=== PATIENT | female | born 1935 | race Caucasian/White ===

== ENCOUNTER 2022-07-22 13:55 | Inpatient (IN) | payer MEDICARE, OTHER ==
[~2022-07-22] VITALS: Ht 172.7 cm; Wt 77.1 kg
[2022-07-22] MEDS ORDERED: HCTZ (14:27)
[2022-07-22] MEDS ORDERED: METFORMIN (14:27)
[2022-07-22] MEDS ORDERED: ARICEPT (14:27)
[2022-07-22] MEDS ORDERED: NAMENDA (14:27)
[2022-07-22] MEDS ORDERED: GABAPENTIN (14:27)
[2022-07-22] MEDS ORDERED: OLME5TAB3 (14:27)
--- NOTE | 2022-07-22 14:27 | NUR ---
PT AND PT's DOUGHTER DOES NOT REMEMBER PT's HOME MEDICATION DOSAGES.
[2022-07-22 15:24] LABS: HEMATOCRIT 34.9 % (31.2-41.9); MEAN CORPUSCULAR HEMOGLOBIN 28.4 uug (24.7-32.8); MEAN CORPUSCULAR VOLUME 85.1 fL (75.5-95.3); PLATELET COUNT (AUTO) 312 K/uL (179-408)
[2022-07-22 15:33] LABS: CARBON DIOXIDE 25 mmol/L (21-32); CHLORIDE 107 mmol/L (98-107); CREATININE 1.5 mg/dL (0.6-1.3); GLUCOSE 106 mg/dL (74-106); UREA NITROGEN, BLOOD 23 mg/dL (7-18)
[2022-07-22] MEDS ORDERED: DONE10TA11 PO (15:37)
[2022-07-22] MEDS ORDERED: ASPI81TA31 PO (15:37)
[2022-07-22] MEDS ORDERED: OLME40TA12 PO (15:37)
[2022-07-22] MEDS ORDERED: METF-440 PO (15:37)
[2022-07-22 15:39] LABS: ALANINE AMINOTRANSFERASE 18 U/L (14-59); ALKALINE PHOSPHATASE 79 U/L (50-136); ASPARTATE AMINOTRANSFERASE 7 U/L (15-37); BILIRUBIN,DIRECT 0.1 mg/dL (0.0-0.2); BILIRUBIN,TOTAL 0.3 mg/dL (0.2-1.0); TOTAL PROTEIN, SERUM 6.8 g/dL (6.4-8.2)
[2022-07-22] MEDS ORDERED: HYDR25TA4 PO (15:42)
[2022-07-22] MEDS ORDERED: IV NORMAL SALINE 1000 ML BAG IV ONE (16:00)
[2022-07-22] MEDS ORDERED: QUET100T PO (18:44)
[2022-07-22] MEDS ORDERED: DOCU50CA3 PO (18:45)
--- NOTE | 2022-07-22 22:39 | NUR ---
Notify Israel Alvarez regarding patient daughter request for Seroquel 100mg po q hs for agitation, Torey Alvarez ordered Seroquel as requested.
[2022-07-22 22:50] VITALS: BP 185/88
[2022-07-22] MEDS: QUETIAPINE FUMARATE 100 MG TABLET PO SCH (22:50)
[2022-07-22] MEDS ORDERED: hydrALAZINE HCL 25 MG TABLET PO PRN (23:45)
[2022-07-23] MEDS ORDERED: MAGNESIUM HYDROXIDE 30 ML LIQUID UDC PO PRN
[2022-07-23] MEDS ORDERED: ACETAMINOPHEN 325 MG TABLET PO PRN
[2022-07-23] MEDS ORDERED: REMEDY ESSENTIAL ZINC PASTE 113 GM TP PRN
[2022-07-23] MEDS ORDERED: ONDANSETRON 4 MG/2 ML VIAL IV PRN
[2022-07-23 00:18] VITALS: BP 140/67
[2022-07-23] MEDS: IV LACTATED RINGERS SOLUTION 1,000 ML IV PRN ×2 (02:20→16:04)
--- NOTE | 2022-07-23 03:43 | NUR ---
Pt asleep IVf infusing site satisfactory. No loose stools noted.
[2022-07-23 04:55] VITALS: BP 148/71
[2022-07-23 07:18] LABS: HEMATOCRIT 31.7 % (31.2-41.9); MEAN CORPUSCULAR HEMOGLOBIN 28.5 uug (24.7-32.8); MEAN CORPUSCULAR VOLUME 83.8 fL (75.5-95.3); PLATELET COUNT (AUTO) 297 K/uL (179-408)
[2022-07-23 07:31] LABS: CREATININE 1.3 mg/dL (0.6-1.3); MAGNESIUM 2.1 mg/dL (1.8-2.4); PHOSPHOROUS 2.6 mg/dL (2.5-4.9)
--- NOTE | 2022-07-23 08:00 | NUR ---
IN BED REMAINS CONFUSED, SPEAKS CONGOLESE BUT ABLE TO FOLLOW SIMPLE COMMANDS.REQUIRES TOTAL CARE IN ALL AREAS OF ADLS. PATIENT HEART MONITOR DISCONTINUED. ADMIT ORDERS WAS TELE
[2022-07-23] MEDS: DONEPEZIL 10 MG TABLET PO SCH (08:33)
[2022-07-23] MEDS: ASPIRIN 81 MG TAB.CHEW PO SCH (08:33)
[2022-07-23] MEDS: GABAPENTIN 100 MG CAPSULE PO SCH ×3 (08:34→14:18)
[2022-07-23] MEDS: HYDROCHLOROTHIAZIDE 25 MG TABLET PO SCH (08:34)
[2022-07-23] MEDS: LOSARTAN POTASSIUM 50 MG TABLET PO SCH (08:34)
[2022-07-23] MEDS ORDERED: METFORMIN HCL 500 MG TABLET PO SCH (09:00)
[2022-07-23 10:56] VITALS: BP 160/73
--- NOTE | 2022-07-23 12:00 | NUR ---
NO ACUTE CHANGE FROM MORNING ASSESSMENT, SEEN BY PHYSICAL THERAPIST FOR EXERCISE SEE NOTES
[2022-07-23] MEDS ORDERED: MEMA10TA PO (12:48)
[2022-07-23] MEDS ORDERED: BISACODYL 10 MG SUPP.RECT RC PRN (14:15)
[2022-07-23] MEDS: DOCUSATE SODIUM 100 MG CAPSULE PO SCH ×2 (14:19→22:37)
[2022-07-23 15:05] VITALS: BP 146/67
[2022-07-23] MEDS ORDERED: MIRALAX 17 GM POWD.PACK PO PRN (15:45)
--- NOTE | 2022-07-23 16:14 | NUR ---
SEEN BY DR ROLLINS FOR FOLLOW-UP, MADE AWARE OF NO BM X 2 DAYS WITH ORDERS
[2022-07-23] MEDS: BLOOD SUGAR DIAGNOSTIC 1 EACH STRIP VI SCH ×2 (17:08→21:00)
--- NOTE | 2022-07-23 18:05 | NUR ---
PATIENT PULLED OUT OWN IV, TRIED TO RESTART MULTIPLE TIMES BUT VERY POOR VEIN. DR ROLLINS NOTIFIED AWAITING CALL BACK
[2022-07-23] MEDS: QUETIAPINE FUMARATE 100 MG TABLET PO SCH (19:58)
[2022-07-23 20:00] VITALS: BP 155/79
--- NOTE | 2022-07-23 20:23 | NUR ---
Pt rec'd in bed no distress noted. Daughter at bedside Stated that patient will be disscarged home tomorrow. Not found in note PIV out call placed to MD by previous shift Nurse pending response.
[2022-07-23] MEDS ORDERED: MEMANTINE HCL 5 MG TABLET PO SCH (21:00)
[2022-07-23] MEDS ORDERED: QUETIAPINE FUMARATE 100 MG TABLET PO SCH (21:00)
[2022-07-24 04:00] VITALS: BP 157/79
[2022-07-24] MEDS: BLOOD SUGAR DIAGNOSTIC 1 EACH STRIP VI SCH ×3 (06:43→16:30)
[2022-07-24 06:49] LABS: HEMATOCRIT 33.5 % (31.2-41.9); MEAN CORPUSCULAR HEMOGLOBIN 28.5 uug (24.7-32.8); MEAN CORPUSCULAR VOLUME 84.3 fL (75.5-95.3); PLATELET COUNT (AUTO) 326 K/uL (179-408)
[2022-07-24 06:57] LABS: CREATININE 1.2 mg/dL (0.6-1.3); POTASSIUM 3.8 mmol/L (3.5-5.1)
--- NOTE | 2022-07-24 07:28 | NUR ---
Attempted to insert iv to administer fluids no success. IV Nurse on floor to insert Midline. Po fluids given
--- NOTE | 2022-07-24 08:00 | NUR ---
RECEIVED PATIENT IN BED ASLEEP EASILY AROUSABLE NON VERBAL OBEYS COMMAND AND COOPERATIVE ALL NEEDS ANTICIPATED AND SATISFIED.MAX ASSIST FOR ALL ADL REPOSITIONED FOR COMFORT CALL LIGHTS AND PERSONAL BELONGINGS ARE WITHIN EASY REACH MADE COMFORTABLE AND WILL CONTINUE TO OBSERVE.
[2022-07-24] MEDS: DOCUSATE SODIUM 100 MG CAPSULE PO SCH (08:56)
[2022-07-24] MEDS: DONEPEZIL 10 MG TABLET PO SCH (08:56)
[2022-07-24] MEDS: GABAPENTIN 100 MG CAPSULE PO SCH ×3 (08:56→17:39)
[2022-07-24] MEDS: ASPIRIN 81 MG TAB.CHEW PO SCH (08:56)
[2022-07-24] MEDS: HYDROCHLOROTHIAZIDE 25 MG TABLET PO SCH (08:57)
[2022-07-24] MEDS: LOSARTAN POTASSIUM 50 MG TABLET PO SCH (08:57)
--- NOTE | 2022-07-24 09:00 | NUR ---
PATIENT HAS NO IV SITE SHE IS A HARD STICK AND PER REPORT PATIENTS DAUGHTER DOES NOT WANT MID LINE INSERTION SO DR KATIE ROLLINS NOTIFIED STATED [place] WILL DECIDE IF PATIENT WILL NEED A LINE IN CASE SHE WILL NOT BE DISCHARGED TODAY.
[2022-07-24 11:26] VITALS: BP 142/58
--- NOTE | 2022-07-24 12:15 | NUR ---
RECEIVED CALL FROM THE LAB WITH POSITIVE BLOOD CULTURES IN BOTH BOTTLES GRAM POSITIVE COCCI IN CLUSTERS CALLED TO DR KATIE ROLLINS WITH NO ORDERS AT THIS TIME
--- NOTE | 2022-07-24 12:30 | NUR ---
NEW ORDERS NOTED FROM DR KATIE ROLLINS PATIENT CATH AND URINE SENT TO THE LAB ORDERED.
[2022-07-24 14:18] LABS: *BILIRUBIN,URIN NEGATIVE (NEGATIVE); *CLARITY,URINE SLIGHTLY CLOUDY (CLEAR); *COLOR,URINE YELLOW (YELLOW); *KETONES,URINE NEGATIVE (NEGATIVE); *UROBILINOGEN,URINE 0.2 E.U./dl (NORMAL); LEUKOCYTE ESTERASE ,URINE 2+ (NEGATIVE); NITRITE, URINE POSITIVE (NEGATIVE); UGLUCOSE NEGATIVE (NEGATIVE)
[2022-07-24 14:20] LABS: *BLOOD, URINE TRACE (NEGATIVE)
[2022-07-24 14:45] LABS: BACTERIA,URINE MANY /HPF (NONE SEEN); RBC,URINE 0-3 /HPF (0-3); SQUAMOUS EPITHELIAL CELL,UR MODERATE /HPF (NONE SEEN); WBC,URINE 50-80 /HPF (0-3)
--- NOTE | 2022-07-24 15:10 | NUR ---
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
--- NOTE | 2022-07-24 15:15 | NUR ---
PATIENT SEEN BY DR KATIE ROLLINS WITH ORDER TO DISCHARGE PATIENT HOME STATED WILL ORDER ORAL ANTIBIOTICS FOR HER URINARY TRACT INFECTION PEDAL ASSEMBLER AT THE BEDSIDE NAD PATIENTS DAUGHTER AWARE.
[2022-07-24] MEDS ORDERED: POLY17PO4 PO (15:18)
[2022-07-24] MEDS ORDERED: SULF1TAB48 PO (15:18)
[2022-07-24 16:31] VITALS: BP 99/52
[2022-07-24] MEDS ORDERED: SULFAMETH/TRIMETH 800/160 MG TABLET PO SCH (17:45)
--- NOTE | 2022-07-24 18:30 | NUR ---
PATIENT DISCHARGED PICKED UP BY [facility] IN SATISFACTORY WITH ALL HER PERSONAL BELONGINGS APOKE WITH PATIENTS ORE DRYER FADIA AND PATIENTS DAUGHTER SANDRA AND THE PLAN IS THAT [facility] WILL DELIVER PATIENTS MEDICATIONS TOMORROW INITIAL DOSE OF BACTRIM DS WAS GIVEN TODAY PRIOR TO PATIENT BEING DISCHARGED AND FAMILY AWARE.
== END 2022-07-24 18:30 | disposition home or self-care (01) | DRG 682 ==
LOC: ER 13:55 → TELE3 21:27 → MEDSURG3 07-23 08:25
PROVIDERS: ADMIT Nurse Practitioner Acute Care; ATTEND Nurse Practitioner Acute Care
DX: N17.9 Acute kidney failure, unspecified (principal); G93.41 Metabolic encephalopathy; N39.0 Urinary tract infection, site not specified; E87.20 Acidosis, unspecified; E86.0 Dehydration; E83.52 Hypercalcemia; I10 Essential (primary) hypertension; F03.90 Unspecified dementia, unspecified severity, without behavioral disturbance, psychotic disturbance, mood disturbance, and anxiety; E11.9 Type 2 diabetes mellitus without complications; R53.1 Weakness; Z88.0 Allergy status to penicillin; Z20.822 Contact with and (suspected) exposure to COVID-19; Z79.84 Long term (current) use of oral hypoglycemic drugs; K59.00 Constipation, unspecified
CPT/HCPCS: 36415; 70450; 71045; 83605; 83735; 84100; 85025; 87040; 87086; 93005; A4663; C1758; G0378; J7040; J7120